=== PATIENT | male | born 1970 | race Caucasian/White ===

== ENCOUNTER 2017-08-08 22:44 | Emergency (ER) | payer OTHER ==
[2017-08-08] MEDS ORDERED: LORazepam 1 MG Tab PO ONE (23:07)
--- NOTE | 2017-08-08 23:11 | EDM.PDOC ---
ED HPI GENERAL MEDICAL PROBLEM - General Chief Complaint: Behavioral/Psych Stated Complaint: PT HAS ANXIETY Time Seen by Provider: 08/08/17 22:59 - History of Present Illness INITIAL COMMENTS - FREE TEXT/NARRATIVE: HISTORY AND PHYSICAL: History of present illness: The patient is a 47-year-old male with a history of depression and ADHD who saw a provider in [place] when he was living there and was on medications and presents tonight to the ED to us with complaints of anxiety with difficulty sleeping over the last 3 days and no appetite and feeling restless. The patient has not tried any [id number] medications such as melatonin or Benadryl and has no provider discuss these situation with. The patient says he was at [facility] ER 4 days ago and they represcribed him lithium and Wellbutrin that he been on in the past and he has been taking that and has not felt better. He did discuss with them his anxiety but did not get anything for his anxiety. The patient denies any chest pain shortness of breath abdominal pain. The patient denies any suicidal or homicidal ideation but just wants to eat and drink and sleep. Patient does admit that he drinks a lot of caffeinated products but is not eating very well. The patient denies drug and alcohol use and smokes cigarettes. Review of systems: As per history of present illness and below otherwise all systems reviewed and negative. Past medical history: As per history of present illness and as reviewed below otherwise noncontributory. Surgical history: As per history of present illness and as reviewed below otherwise noncontributory. Social history: No reported history of drug or alcohol abuse. Family history: As per history of present illness and as reviewed below otherwise noncontributory. Physical exam: : Well-developed well-nourished man who is nontoxic and vital signs are reviewed by me HEENT: Atraumatic, normocephalic, pupils reactive, negative for conjunctival pallor or scleral icterus, mucous membranes moist, throat clear, neck supple, nontender, trachea midline. Lungs: Clear to auscultation, breath sounds equal bilaterally, chest nontender. Heart: S1S2, regular in rhythm no overt murmurs Abdomen: Soft, nondistended, nontender. NABSNegative for costovertebral tenderness. Pelvis: Deferred Genitourinary: Deferred. Rectal: Deferred. Extremities: Atraumatic, negative for cords or calf pain. Neurovascular unremarkable. Neuro: Awake, alert, oriented. Cranial nerves II through XII unremarkable. Cerebellum unremarkable. Motor and sensory unremarkable throughout. Exam nonfocal. Diagnostics: [] Therapeutics: Ativan by mouth--- the patient drove himself here and I told him I don't only give him this one dose if he could get a ride. Discussed with the patient needs to connect with some outpatient counseling as well as using nonprescription modalities to help with sleep. We also discussed reducing caffeine intake and I will give her referral to our clinic as well. Impression: Anxiety reaction stable Definitive disposition and diagnosis as appropriate pending reevaluation and review of above. denies pain Pain Score (Numeric/FACES): 0 - Related Data Allergies Allergy/AdvReac Type Severity Reaction Status Date / Time No Known Allergies Allergy Verified 08/08/17 23:00 ED ROS GENERAL - Review of Systems Review Of Systems: ROS reveals no pertinent complaints other than HPI. ED EXAM, GENERAL - Physical Exam Exam: See Below (See dictation) Course - Vital Signs Last Recorded V/S: Last Vital Signs Temp 36.1 C 08/08/17 23:01 Pulse 72 08/08/17 23:01 Resp 18 08/08/17 23:01 BP 112/89 08/08/17 23:01 Pulse Ox 98 08/08/17 23:01 - Orders/Labs/Meds Orders: Active Orders 24 hr Category Date Time Status LORazepam [Ativan] Med 08/08/17 23:07 Once 2 mg PO ONETIME ONE Departure - Departure Time of Disposition: 23:10 Disposition: Home, Self-Care 01 Condition: Good Clinical Impression: Anxiety - Discharge Information Referrals: PCP,None [Primary Care Provider] - Additional Instructions: The following information is given to patients seen in the emergency department who are being discharged to home. This information is to outline your options for follow-up care. We provide all patients seen in our emergency department with a follow-up referral. The need for follow-up, as well as the timing and circumstances, are variable depending upon the specifics of your emergency department visit. If you don't have a primary care physician on staff, we will provide you with a referral. We always advise you to contact your personal physician following an emergency department visit to inform them of the circumstance of the visit and for follow-up with them and/or the need for any referrals to a consulting specialist. The emergency department will also refer you to a specialist when appropriate. This referral assures that you have the opportunity for followup care with a specialist. All of these measure are taken in an effort to provide you with optimal care, which includes your followup. Under all circumstances we always encourage you to contact your private physician who remains a resource for coordinating your care. When calling for followup care, please make the office aware that this follow-up is from your recent emergency room visit. If for any reason you are refused follow-up, please contact the [facility] emergency department at and ask to speak to the emergency department charge nurse. [facility]- [facility] [address] [address] Please use [id number] treatments as we discussed to help with sleep and reduce caffeine intake. Please call our clinic tomorrow to set up a follow-up appointment as well as use the resources your given today to get outpatient counseling. Return to ER as needed and as discussed - My Orders Last 24 Hours: My Active Orders 08/08/17 23:07 LORazepam [Ativan] 2 mg PO ONETIME ONE - Assessment/Plan Last 24 Hours: My Active Orders 08/08/17 23:07 LORazepam [Ativan] 2 mg PO ONETIME ONE
== END 2017-08-08 23:53 | disposition home or self-care (01) ==
LOC: MW.ED 22:44
DX: F41.9 Anxiety disorder, unspecified (principal)
CPT/HCPCS: 99283; A9270